=== PATIENT | female | born 1945 | race Caucasian/White ===

== ENCOUNTER → 2016-08-17 | Outpatient (CLI) | payer MEDICARE, OTHER ==
[~2016-08-17] MED LIST: ACET500C OR; ASPI81TA83 OR; ATEN25TA OR; CALCTAB22 PO; LEVOXYL25 MCG OR; NAPR250T OR; NIAS500T2 PO; QUININE PO; TRAM50TA2 PO; VESICARE PO; VITAMIN B6 PO; WELCHOL PO; ZOCO40TA PO
[2016-08-17 13:28] LABS: MEAN CORPUSCULAR HEMOGLOBIN 31.8 pg (27.0-33.0); MEAN CORPUSCULAR HGB CONC 33.4 g/dl (32.0-36.5); MEAN CORPUSCULAR VOLUME 95.1 fl (80.0-96.0); RED CELL DISTRIBUTION WIDTH 12.5 % (11.5-14.5); WHITE BLOOD COUNT 6.6 K/mm3 (4.0-10.0)
[2016-08-17 13:56] LABS: ALBUMIN 4.3 GM/DL (3.2-5.2); ALBUMIN/GLOBULIN RATIO 1.48 (1.00-1.93); ALKALINE PHOSPHATASE 78 U/L (45-117); ALT/SGPT 50 U/L (12-78); ANION GAP 9 MEQ/L (8-16); AST/SGOT 28 U/L (15-37); BILIRUBIN,TOTAL 0.4 MG/DL (0.2-1.0); BLOOD UREA NITROGEN 16 MG/DL (7-18); CALCIUM LEVEL 9.5 MG/DL (8.8-10.2); CARBON DIOXIDE LEVEL 30 MEQ/L (21-32); CHLORIDE LEVEL 106 MEQ/L (98-107); CHOLESTEROL LEVEL 196 MG/DL (<200); CREATININE FOR GFR 0.91 MG/DL (0.55-1.02); GLOMERULAR FILTRATION RATE > 60.0 (>39); GLUCOSE, FASTING 96 MG/DL (83-110); POTASSIUM SERUM 4.5 MEQ/L (3.5-5.1); SODIUM LEVEL 145 MEQ/L (136-145); TOTAL PROTEIN 7.2 GM/DL (6.4-8.2); TRIGLYCERIDES LEVEL 255 MG/DL (<150)
== END ==
LOC: M SMT 08:20
PROVIDERS: ATTEND Nurse Practitioner Family
DX: E03.8 Other specified hypothyroidism (principal); E78.4 Other hyperlipidemia; I10 Essential (primary) hypertension

== ENCOUNTER → 2016-10-07 | Outpatient (CLI) | payer MEDICARE, OTHER | LOC: M SMT 08:31 | PROVIDERS: ATTEND Nurse Practitioner Family | DX: E03.8 Other specified hypothyroidism (principal) ==

== ENCOUNTER → 2017-07-03 | Outpatient (CLI) | payer MEDICARE, OTHER ==
[2017-07-03 14:15] LABS: MEAN CORPUSCULAR HEMOGLOBIN 31.2 pg (27.0-33.0); MEAN CORPUSCULAR HGB CONC 31.8 g/dl (32.0-36.5); PLATELET COUNT, AUTOMATED 229 10^3/uL (150-450); RED CELL DISTRIBUTION WIDTH 13.2 % (11.5-14.5); WHITE BLOOD COUNT 5.5 10^3/uL (4.0-10.0)
[2017-07-03 14:50] LABS: ALBUMIN 4.2 GM/DL (3.2-5.2); ALBUMIN/GLOBULIN RATIO 1.45 (1.00-1.93); ALKALINE PHOSPHATASE 70 U/L (45-117); ALT/SGPT 31 U/L (12-78); ANION GAP 6 MEQ/L (8-16); AST/SGOT 22 U/L (7-37); BILIRUBIN,TOTAL 0.3 MG/DL (0.2-1.0); BLOOD UREA NITROGEN 12 MG/DL (7-18); CALCIUM LEVEL 8.6 MG/DL (8.8-10.2); CARBON DIOXIDE LEVEL 28 MEQ/L (21-32); CHLORIDE LEVEL 109 MEQ/L (98-107); CHOLESTEROL LEVEL 172 MG/DL (<200); CREATININE FOR GFR 0.79 MG/DL (0.55-1.02); GLOMERULAR FILTRATION RATE > 60.0 (>39); GLUCOSE, FASTING 98 MG/DL (83-110); POTASSIUM SERUM 4.5 MEQ/L (3.5-5.1); SODIUM LEVEL 143 MEQ/L (136-145); TOTAL PROTEIN 7.1 GM/DL (6.4-8.2); TRIGLYCERIDES LEVEL 161 MG/DL (<150)
== END ==
LOC: M SMT 08:13
PROVIDERS: ATTEND Nurse Practitioner Family
DX: E03.8 Other specified hypothyroidism (principal); E78.2 Mixed hyperlipidemia; I10 Essential (primary) hypertension

== ENCOUNTER → 2018-01-17 | Outpatient (CLI) | payer MEDICARE, OTHER ==
[2018-01-17 14:06] LABS: HEMATOCRIT 43.3 % (36.0-47.0); HEMOGLOBIN 13.7 g/dl (12.0-15.5); MEAN CORPUSCULAR HEMOGLOBIN 31.5 pg (27.0-33.0); MEAN CORPUSCULAR HGB CONC 31.6 g/dl (32.0-36.5); MEAN CORPUSCULAR VOLUME 99.5 fl (80.0-96.0); PLATELET COUNT, AUTOMATED 214 10^3/uL (150-450); RED BLOOD COUNT 4.35 10^6/uL (4.00-5.40); RED CELL DISTRIBUTION WIDTH 13.4 % (11.5-14.5); WHITE BLOOD COUNT 5.9 10^3/uL (4.0-10.0)
[2018-01-17 14:42] LABS: ALBUMIN 4.2 GM/DL (3.2-5.2); ALBUMIN/GLOBULIN RATIO 1.35 (1.00-1.93); ALKALINE PHOSPHATASE 68 U/L (45-117); ALT/SGPT 47 U/L (12-78); ANION GAP 9 MEQ/L (8-16); AST/SGOT 32 U/L (7-37); BILIRUBIN,TOTAL 0.4 MG/DL (0.2-1.0); BLOOD UREA NITROGEN 14 MG/DL (7-18); CALCIUM LEVEL 9.1 MG/DL (8.8-10.2); CARBON DIOXIDE LEVEL 30 MEQ/L (21-32); CHLORIDE LEVEL 106 MEQ/L (98-107); CHOLESTEROL LEVEL 208 MG/DL (<200); CHOLESTEROL RISK RATIO 5.073 (<5); CREATININE FOR GFR 1.01 MG/DL (0.55-1.30); GLOMERULAR FILTRATION RATE 57.2 (>39); GLUCOSE, FASTING 92 MG/DL (70-100); HDL CHOLESTEROL 41 MG/DL (>40); MAGNESIUM LEVEL 2.3 MG/DL (1.8-2.4); NON-HDL-C 167 MG/DL; POTASSIUM SERUM 4.8 MEQ/L (3.5-5.1); SODIUM LEVEL 145 MEQ/L (136-145); TOTAL PROTEIN 7.3 GM/DL (6.4-8.2); TRIGLYCERIDES LEVEL 230 MG/DL (<150)
== END ==
LOC: M SMT 08:26
DX: E78.2 Mixed hyperlipidemia (principal)
CPT/HCPCS: 83735

== ENCOUNTER → 2018-08-14 | Outpatient (CLI) | payer MEDICARE, OTHER ==
[2018-08-14 13:58] LABS: HEMATOCRIT 46.4 % (36.0-47.0); HEMOGLOBIN 14.6 g/dl (12.0-15.5); MEAN CORPUSCULAR HEMOGLOBIN 31.3 pg (27.0-33.0); MEAN CORPUSCULAR HGB CONC 31.5 g/dl (32.0-36.5); MEAN CORPUSCULAR VOLUME 99.4 fl (80.0-96.0); PLATELET COUNT, AUTOMATED 233 10^3/uL (150-450); RED BLOOD COUNT 4.67 10^6/uL (4.00-5.40)
[2018-08-14 14:29] LABS: ALBUMIN 4.3 GM/DL (3.2-5.2); ALT/SGPT 40 U/L (12-78); BILIRUBIN,TOTAL 0.4 MG/DL (0.2-1.0); BLOOD UREA NITROGEN 13 MG/DL (7-18); CALCIUM LEVEL 9.3 MG/DL (8.8-10.2); CARBON DIOXIDE LEVEL 29 MEQ/L (21-32); CHLORIDE LEVEL 106 MEQ/L (98-107); CHOLESTEROL LEVEL 192 MG/DL (<200); CHOLESTEROL RISK RATIO 3.047 (<5); CREATININE FOR GFR 0.87 MG/DL (0.55-1.30); GLOMERULAR FILTRATION RATE > 60.0 (>39); GLUCOSE, FASTING 91 MG/DL (70-100); HDL CHOLESTEROL 63 MG/DL (>40); LDL CHOLESTEROL 99 MG/DL (<100); NON-HDL-C 129 MG/DL; POTASSIUM SERUM 4.5 MEQ/L (3.5-5.1); SODIUM LEVEL 140 MEQ/L (136-145); TOTAL PROTEIN 7.2 GM/DL (6.4-8.2); TRIGLYCERIDES LEVEL 149 MG/DL (<150)
== END ==
LOC: M SMT 08:59
PROVIDERS: ATTEND Nurse Practitioner Family
DX: I10 Essential (primary) hypertension (principal); E78.5 Hyperlipidemia, unspecified

== ENCOUNTER → 2018-10-08 | Outpatient (REF) | payer MEDICARE, OTHER ==
[2018-10-08 13:20] LABS: BASO # 0.1 10^3/uL (0.0-0.2); BASO % 0.8 % (0.0-1.0); EOS # 0.1 10^3/uL (0.0-0.50); EOS % 1.7 % (0.0-3.0); HEMATOCRIT 41.3 % (36.0-47.0); HEMOGLOBIN 13.4 g/dl (12.0-15.5); LYMPH # 1.5 10^3/uL (1.5-4.5); LYMPH % 23.9 % (24.0-44.0); MEAN CORPUSCULAR HEMOGLOBIN 31.5 pg (27.0-33.0); MEAN CORPUSCULAR HGB CONC 32.4 g/dl (32.0-36.5); MEAN CORPUSCULAR VOLUME 96.9 fl (80.0-96.0); MONO # 0.7 10^3/uL (0.0-0.8); MONO % 11.6 % (0.0-5.0); NEUTROPHILS # 3.9 10^3/uL (1.8-7.7); NEUTROPHILS % 61.5 % (36.0-66.0); PLATELET COUNT, AUTOMATED 234 10^3/uL (150-450); RED BLOOD COUNT 4.26 10^6/uL (4.00-5.40); WHITE BLOOD COUNT 6.4 10^3/uL (4.0-10.0)
[2018-10-08 13:49] LABS: C REACTIVE PROTEIN QUANTITATIV < 0.30 MG/DL (0.00-0.30); ERYTHROCYTE SEDIMENTATION RATE 13 mm/hr (0-30); RHEUMATOID FACTOR QUANT < 10.0 IU/ML (<15.0); URIC ACID 4.1 MG/DL (2.6-6.0)
== END ==
LOC: M LABDRAW1 12:31
PROVIDERS: ATTEND Physician Assistant
DX: M17.11 Unilateral primary osteoarthritis, right knee (principal)

== ENCOUNTER → 2019-07-03 | Outpatient (CLI) | payer MEDICARE, OTHER ==
[2019-07-03 12:39] LABS: HEMATOCRIT 45.5 % (36.0-47.0); HEMOGLOBIN 14.3 g/dl (12.0-15.5); MEAN CORPUSCULAR HEMOGLOBIN 31.4 pg (27.0-33.0); MEAN CORPUSCULAR HGB CONC 31.4 g/dl (32.0-36.5); PLATELET COUNT, AUTOMATED 219 10^3/uL (150-450); RED BLOOD COUNT 4.55 10^6/uL (4.00-5.40); WHITE BLOOD COUNT 5.7 10^3/uL (4.0-10.0)
[2019-07-03 13:15] LABS: BLOOD UREA NITROGEN 11 MG/DL (7-18); CREATININE FOR GFR 0.91 MG/DL (0.55-1.30); GLUCOSE, FASTING 86 MG/DL (70-100)
[2019-07-03 13:16] LABS: ALBUMIN 4.3 GM/DL (3.2-5.2); ALT/SGPT 42 U/L (12-78); BILIRUBIN,TOTAL 0.4 MG/DL (0.2-1.0); CALCIUM LEVEL 9.1 MG/DL (8.8-10.2); CARBON DIOXIDE LEVEL 29 MEQ/L (21-32); CHLORIDE LEVEL 108 MEQ/L (98-107); CHOLESTEROL LEVEL 189 MG/DL (<200); CHOLESTEROL RISK RATIO 3.436 (<5); GLOMERULAR FILTRATION RATE > 60.0 (>39); HDL CHOLESTEROL 55 MG/DL (>40); LDL CHOLESTEROL 80 MG/DL (<100); NON-HDL-C 134 MG/DL; POTASSIUM SERUM 4.6 MEQ/L (3.5-5.1); SODIUM LEVEL 143 MEQ/L (136-145); TOTAL PROTEIN 7.1 GM/DL (6.4-8.2); TRIGLYCERIDES LEVEL 272 MG/DL (<150)
== END ==
LOC: M PLALAB 08:21
PROVIDERS: ATTEND Nurse Practitioner Family
DX: E03.9 Hypothyroidism, unspecified (principal); I10 Essential (primary) hypertension

== ENCOUNTER → 2019-11-21 | Outpatient (CLI) | payer MEDICARE, OTHER ==
[2019-11-21 14:24] LABS: THYROID STIMULATING HORMONE 0.22 uIU/ML (0.358-3.740); THYROXINE (T4) 11.4 UG/DL (4.5-12.0)
== END ==
LOC: M PLALAB 11:25
PROVIDERS: ATTEND Family Medicine
DX: E03.8 Other specified hypothyroidism (principal)

== ENCOUNTER → 2020-01-21 | Outpatient (CLI) | payer MEDICARE, OTHER ==
[2020-01-21 14:22] LABS: TOTAL 25(OH) VITAMIN D 89.2 NG/ML (30.0-100.0)
[2020-01-21 14:45] LABS: CALCIUM LEVEL 9.2 MG/DL (8.8-10.2); FREE T3 2.6 PG/ML (2.2-4.0); FREE T4 1.29 NG/DL (0.76-1.46); MAGNESIUM LEVEL 2.3 MG/DL (1.8-2.4); THYROID STIMULATING HORMONE 0.266 uIU/ML (0.358-3.740)
== END ==
LOC: M PLALAB 10:36
PROVIDERS: ATTEND Family Medicine
DX: E03.8 Other specified hypothyroidism (principal); E55.9 Vitamin D deficiency, unspecified; E83.42 Hypomagnesemia

== ENCOUNTER → 2020-03-09 | Outpatient (REF) | payer MEDICARE, OTHER ==
[2020-04-23 11:42] LABS: FREE T3 2.3 PG/ML (2.2-4.0); FREE T4 1.09 NG/DL (0.76-1.46); THYROID STIMULATING HORMONE 0.847 uIU/ML (0.358-3.740)
== END ==
LOC: M PLALAB 11:10
PROVIDERS: ATTEND Family Medicine
DX: E03.8 Other specified hypothyroidism (principal); E55.9 Vitamin D deficiency, unspecified; Z79.899 Other long term (current) drug therapy

== ENCOUNTER → 2020-08-10 | Outpatient (CLI) | payer MEDICARE, OTHER ==
[2020-08-10 13:56] LABS: HEMATOCRIT 45.2 % (36.0-47.0); HEMOGLOBIN 13.8 g/dl (12.0-15.5); MEAN CORPUSCULAR HEMOGLOBIN 31.2 pg (27.0-33.0); MEAN CORPUSCULAR HGB CONC 30.5 g/dl (32.0-36.5); MEAN CORPUSCULAR VOLUME 102.3 fl (80.0-96.0); PLATELET COUNT, AUTOMATED 213 10^3/uL (150-450); RED BLOOD COUNT 4.42 10^6/uL (4.00-5.40); WHITE BLOOD COUNT 5.9 10^3/uL (4.0-10.0)
[2020-08-10 15:14] LABS: ALBUMIN 4.4 GM/DL (3.2-5.2); ALT/SGPT 34 U/L (12-78); BILIRUBIN,TOTAL 0.5 MG/DL (0.2-1.0); BLOOD UREA NITROGEN 16 MG/DL (7-18); CALCIUM LEVEL 9.4 MG/DL (8.8-10.2); CARBON DIOXIDE LEVEL 29 MEQ/L (21-32); CHLORIDE LEVEL 107 MEQ/L (98-107); CHOLESTEROL LEVEL 191 MG/DL (<200); CHOLESTEROL RISK RATIO 3.673 (<5); CPK CREATINE PHOSPHOKINASE 194 U/L (26-192); CREATININE FOR GFR 0.91 MG/DL (0.55-1.30); FREE T3 2.2 PG/ML (2.2-4.0); FREE T4 1.07 NG/DL (0.76-1.46); GLOMERULAR FILTRATION RATE > 60.0 (>39); GLUCOSE, FASTING 98 MG/DL (70-100); HDL CHOLESTEROL 52 MG/DL (>40); LDL CHOLESTEROL 105 MG/DL (<100); NON-HDL-C 139 MG/DL; POTASSIUM SERUM 4.5 MEQ/L (3.5-5.1); SODIUM LEVEL 141 MEQ/L (136-145); TOTAL 25(OH) VITAMIN D 47.5 NG/ML (30.0-100.0); TOTAL PROTEIN 7.4 GM/DL (6.4-8.2); TRIGLYCERIDES LEVEL 172 MG/DL (<150); URIC ACID 4.7 MG/DL (2.6-6.0)
== END ==
LOC: M PLALAB 10:45
PROVIDERS: ATTEND Family Medicine
DX: E78.2 Mixed hyperlipidemia (principal); E03.8 Other specified hypothyroidism; I10 Essential (primary) hypertension; E55.9 Vitamin D deficiency, unspecified; Z79.899 Other long term (current) drug therapy

== ENCOUNTER → 2020-09-18 | Outpatient (CLI) | payer MEDICARE, OTHER ==
[2020-09-18 11:00] LABS: ALBUMIN 3.9 GM/DL (3.2-5.2); BILIRUBIN,DIRECT 0.1 MG/DL (0.0-0.2); BILIRUBIN,TOTAL 0.5 MG/DL (0.2-1.0); CHOLESTEROL RISK RATIO 4.022 (<5); FREE T4 0.99 NG/DL (0.76-1.46); THYROID STIMULATING HORMONE 2.19 uIU/ML (0.358-3.740); TOTAL PROTEIN 7.1 GM/DL (6.4-8.2)
== END ==
LOC: M PLALAB 08:08
PROVIDERS: ATTEND Family Medicine
DX: E03.9 Hypothyroidism, unspecified (principal); E78.2 Mixed hyperlipidemia

== ENCOUNTER → 2020-10-06 | Outpatient (CLI) | payer MEDICARE, OTHER ==
--- NOTE | 2020-10-06 17:27 | REP ---
INDICATION: ACUTE BRONCHITIS, UNSPECIFIED COMPARISON: 03/11/2016 TECHNIQUE: PA and lateral. FINDINGS: The mediastinum and cardiac silhouette are normal. The lung taylor are clear and without acute consolidation, effusion, or pneumothorax. The skeletal structures are intact and normal. IMPRESSION: No acute cardiopulmonary process. <Electronically signed by Jad Zhang > 10/06/20 [id number]
== END ==
LOC: M RAD 17:03
PROVIDERS: ATTEND Family Medicine
DX: J20.9 Acute bronchitis, unspecified (principal)

== ENCOUNTER → 2020-11-02 | Outpatient (CLI) | payer MEDICARE, OTHER ==
[2020-11-02 08:56] LABS: ALBUMIN 4.2 GM/DL (3.2-5.2); ALT/SGPT 30 U/L (12-78); BILIRUBIN,TOTAL 0.4 MG/DL (0.2-1.0); BLOOD UREA NITROGEN 11 MG/DL (7-18); CALCIUM LEVEL 9.1 MG/DL (8.8-10.2); CARBON DIOXIDE LEVEL 30 MEQ/L (21-32); CHLORIDE LEVEL 109 MEQ/L (98-107); CREATININE FOR GFR 0.75 MG/DL (0.55-1.30); GLOMERULAR FILTRATION RATE > 60.0 (>39); GLUCOSE, FASTING 104 MG/DL (70-100); POTASSIUM SERUM 3.9 MEQ/L (3.5-5.1); SODIUM LEVEL 142 MEQ/L (136-145); TOTAL PROTEIN 7.1 GM/DL (6.4-8.2)
== END ==
LOC: M LAB 07:53
PROVIDERS: ATTEND Family Medicine
DX: I10 Essential (primary) hypertension (principal); R05 Cough

== ENCOUNTER → 2020-11-05 | Outpatient (CLI) | payer MEDICARE, OTHER ==
--- NOTE | 2020-11-05 08:42 | REP ---
INDICATION: H/O SMOKING W/ COUGH. COMPARISON: PA and lateral chest dated 10/06/2020. TECHNIQUE: The study is performed without IV contrast. The images are presented at lung windowing only. FINDINGS: There are no lung masses or nodules. There are no infiltrates or pleural effusions. IMPRESSION: Category 1 low-dose lung screening CT of the chest. Probability of malignancy is less than 1%. Depending on risk factors consider follow-up annual low-dose lung screening chest CT. <Electronically signed by Alexis Ramirez > 11/05/20 0838
== END ==
LOC: M RAD 07:46
PROVIDERS: ATTEND Family Medicine
DX: R05 Cough (principal); Z87.891 Personal history of nicotine dependence; Z12.2 Encounter for screening for malignant neoplasm of respiratory organs

== ENCOUNTER → 2021-02-17 | Outpatient (CLI) | payer MEDICARE, OTHER ==
--- NOTE | 2021-02-19 00:18 | ECWPNPC ---
PATIENT NAME: MEENA REAGAN : 1945 GENDER: FEMALE VISIT DATE: 02/17/2021 DISCHARGE DATE: 02/17/21 1047 VISIT LOCKED DATE TIME: PHYSICIAN: MARINA ANGELES RESOURCE: MARINA ANGELES REASON FOR APPOINTMENT 1. LOW BACK PAIN HISTORY OF PRESENT ILLNESS DEPRESSION SCREENING: PHQ-2 (2015 EDITION) LITTLE INTEREST OR PLEASURE IN DOING THINGS?NOT AT ALL FEELING DOWN, DEPRESSED, OR HOPELESS?NOT AT ALL TOTAL SCORE0 GENERAL: HPI WITH HER [id number] FEMALE IN FOR INITIAL PAIN CONSULT REGARDING LOW BACK PAIN WITH HER SYMPTOMS. PATIENT RATES HER PAIN AT A 7 OUT OF 10 AND DESCRIBES IT CONTINUOUS, THROBBING, AND A CONSTANT TOOTHACHE. PATIENT HAS HAD INJECTIONS IN THE PAST TO NO AVAIL SHE FURTHER STATES THAT SHE DOES NOT WANT TO TRY LYRICA SHE WAS TOLD IT HAS A LOT OF POTENTIAL SIDE EFFECTS.. - -. FALL RISK SCREENING: SCREENING TWO FALLS REPORTED IN THE LAST YEAR WITH INJURY. PATIENT DENIES SEEKING MEDICAL TREATMENT.. PAIN SCREENING: PATIENT HAS A COMPLAINT OF ACUTE OR CHRONIC PAIN :YES LOCATION OF PAIN:LOW BACK INTENSITY OF PAIN (SCALE OF 1 TO 10):7 WHAT DOES YOUR PAIN FEEL LIKE:CONTINOUS, THROBBING, OTHER PATIENT STATES IT "FEELS LIKE A CONSTANT TOOTHACHE." DURATION:CONTINOUS, CONSTANT, ALL DAY, AWAKENS FROM SLEEP WALKING PAIN IS INCREASED BY:ACTIVITIES, PROLONGED STANDING PAIN IS DECREASED BY:SITTING PATIENT STATES SHE "HAS TRIED TRAMADOL IN THE PAST WITH NO EFFECT." NURSING NOTE: - -. PAIN CENTER INTAKE QUESTIONS: DO YOU HAVE A HISTORY OF MRSA? :NO DO YOU TAKE A BLOOD THINNERS? :NO ASPIRIN DO YOU HAVE ANY BLEEDING DISORDERS? :NO ANY NEW NUMBNESS OR WEAKNESS IN YOUR LEGS OR ARMS? :NO ANY PACEMAKER,DEFIBRILLATOR, OR DORSAL COLUMN STIMULATOR? :NO DO YOU HAVE ANY RASHES OR OPEN SORES? :NO ARE YOU ALLERGIC TO IV DYE? :NO ARE YOU DIABETIC? :NO ANY NEW PROBLEMS WITH YOUR MEDICATIONS? :NO HAVE YOU RECEIVED A VACCINE IN THE PAST 30 DAYS? :NO DO YOU PLAN TO RECEIVE A VACCINE IN THE NEXT 21 DAYS? :NO DO YOU NEED ANY PRESCRIPTION? :NO DO YOU TAKE ANY IMMUNOSUPPRESSIVE MEDICATIONS? :NO IS THERE A CHANCE YOU COULD BE ? :NO ARE YOU BREAST FEEDING? :NO CURRENT MEDICATIONS TAKING BREO ELLIPTA 200-25 MCG/INH AEROSOL POWDER BREATH ACTIVATED 1 PUFF INHALATION ONCE A DAY TAKING GABAPENTIN 600 MG TABLET 1 TABLET ORALLY ONCE A DAY TAKING LEVOTHYROXINE SODIUM 112 MCG TABLET 1 TABLET IN THE MORNING ON AN EMPTY STOMACH ORALLY ONCE A DAY TAKING LOSARTAN POTASSIUM 50 MG TABLET 1 TABLET ORALLY ONCE A DAY TAKING FLUTICASONE PROPIONATE 50 MCG/ACT SUSPENSION 1 SPRAY IN EACH NOSTRIL NASALLY ONCE A DAY TAKING PROAIR HFA 108 (90 BASE) MCG/ACT AEROSOL SOLUTION 2 PUFFS NEEDED INHALATION QID PRN TAKING DRISDOL 1.25 MG (27621 UT) CAPSULE 1 CAPSULE ORALLY MONTHLY TAKING ATENOLOL 25 MG TABLET 1 TABLET ORALLY ONCE A DAY TAKING ZOCOR 20 MG TABLET 1 TABLET IN THE EVENING ORALLY ONCE A DAY TAKING FISH OIL 1000 MG CAPSULE 1 CAPSULE ORALLY ONCE A DAY TAKING CALCIUM 1200 8906-1752 MG-UNIT TABLET CHEWABLE 1 TABLET ORALLY ONCE A DAY TAKING ASPIRIN 81 MG TABLET CHEWABLE 1 TABLET ORALLY ONCE A DAY TAKING LION ALLERGY 180 MG TABLET 1 TABLET ORALLY ONCE A DAY NOT-TAKING DULOXETINE HCL 60 MG CAPSULE DELAYED RELEASE PARTICLES 1 CAPSULE ORALLY ONCE A DAY NOT-TAKING LORATADINE 10 MG TABLET 1 TABLET ORALLY ONCE A DAY MEDICATION LIST REVIEWED AND RECONCILED WITH THE PATIENT PAST MEDICAL HISTORY HYPOTHYROIDISM HYPERLIPIDEMIA DISTURBANCE OF SMELL- ANOSMIA SCIATICA ATHROPATHY URGE AND STRESS INCONTINNCE VERICOSE VEINS LOWER LEGS HTN ALLERGIES HAYFEVER: CONGESTED - ALLERGY SURGICAL HISTORY TONSILLECTOMY THYROIDECTOMY-RIGHT SIDE GOITER REMOVED CHOLECTECTOMY FAMILY HISTORY FATHER: MOTHER: 1 BROTHER(S) , 1 SISTER(S) - HEALTHY. 1 BROTHER AND 1 SISTER . SOCIAL HISTORY GENERAL: TOBACCO USE ARE YOU A:FORMER SMOKER HOW LONG HAS IT BEEN SINCE YOU LAST SMOKED?> 10 YEARS LATEX QUESTIONNAIRE LATEX ALLERGY : HAVE YOU EVER DEVELOPED ANY TYPE OF REACTION AFTER HANDLING LATEX PRODUCTS SUCH RUBBER GLOVES, CONDOMS, DIAPHRAGMS, BALLOONS, SOCKS, OR UNDERWEAR?NO LATEX ALLERGY : HAVE YOU EVER DEVELOPED ANY TYPE OF REACTION DURING OR AFTER DENTAL APPOINTMENT, VAGINAL/RECTAL EXAMINATION, SURGICAL PROCEDURE, OR ANY OTHER EXPOSURE?NO LATEX RISK : HAVE YOU EVER HAD ANY DIFFICULTY BREATHING OR HIVES AFTER EATING OR HANDLING ANY FRUITS, OR VEGETABLES; SUCH KIWI, BANANAS, STONE FRUITS, OR CHESTNUTSNO LATEX RISK : DO YOU HAVE A PREVIOUS PERSONAL HISTORY OF MORE THAN NINE SURGERIES, SPINA BIFIDA, OR REPEATED CATHERIZATIONS? NO LATEX RISK : ARE YOU FREQUENTLY EXPOSED TO LATEX PRODUCTS IN YOUR OCCUPATION?NO DATE ASKED : 02/17/2021 ALCOHOL USE: OCCASIONAL. RECREATIONAL DRUG USE DRUG USE?NO LANGUAGE LANGUAGES SPOKEN:TAJIK LEARNING BARRIERS / SPECIAL NEEDS BARRIERS TO LEARNING?NO HEARING IMPAIRED?NO VISION IMPAIRED?YES :CORRECTIVE LENSES COGNITIVELY IMPAIRED?NO READINESS TO LEARN?YES LEARNING PREFERENCES?NO LEARNING CAPABILITIES PRESENT?YES EMOTIONAL BARRIERS?NO SPECIAL DEVICES?NO WOOD ROOM SUPERVISOR NEEDED?NO HOSPITALIZATION/MAJOR DIAGNOSTIC PROCEDURE SURGERY RELATED REVIEW OF SYSTEMS CONSTITUTIONAL: ANY RECENT FEVER NO . CHILLS NO . WEIGHT CHANGE OF UNKNOWN REASONS NO . GASTROENTEROLOGY: NEW UNEXPLAINABLE CHANGES IN BOWEL CONTROL NO . CONSTIPATION NO . GENITOURINARY: ANY NEW CHANGE IN BLADDER CONTROL? NO . NEUROLOGY: NEW ONSET DIZZINESS OR NEUROLOGICAL CHANGES NOT MENTIONED NO . NEW NUMBNESS OR PAIN PATTERNS NOT MENTIONED AND PERTINENT TO TODAY'S VISIT NO . CARDIOLOGY: NEW CHEST PRESSURE NO . PATIENT DENIES NO . RESPIRATORY: UNEXPLAINABLE COUGH NO . NEW SHORTNESS OF BREATH NO . VITAL SIGNS WT 165.2 LBS, HT 52 IN, BMI 42.95 INDEX, BP 138/74 MM HG, HR 66 /MIN, RR 18 /MIN, TEMP 98.0 F, OXYGEN SAT % 99%, SAFE IN ENV? (Y/N) YES, NA INITIALS AW 0953, REVIEWED BY: DICK MARQUEZ MA. EXAMINATION GENERAL EXAMINATION: GENERALNO ACUTE DISTRESS, WELL NOURISHED AND HYDRATED. PSYCHAPPROPRIATE MOOD AND AFFECT . LUNGS:CLEAR TO AUSCULTATION BILATERALLY, NO WHEEZES, RHONCHI, RALES. HEART:NO MURMURS, REGULAR RATE AND RHYTHM. BACK:DENIES POINT TENDERNESS ALONG LUMBAR SPINE, POSITIVE MODIFIED SLR LEFT SIDE. MUSCULOSKELETAL:EQUAL STRENGTH OF THE LOWER EXTREMITIES BILATERALLY. ASSESSMENTS DORSALGIA OF LUMBOSACRAL REGION - M54.5 (PRIMARY) TREATMENT DORSALGIA OF LUMBOSACRAL REGION START CELEBREX CAPSULE, 100 MG, 1 CAPSULE WITH FOOD, ORALLY, ONCE A DAY, 30 DAY(S), 30 CAPSULE, REFILLS [facility], [facility] WITHOUT [id number] NOTES: 75-YEAR-OLD FEMALE IN FOR INITIAL PAIN CONSULT REGARDING LOW BACK PAIN. GIVEN PRESENTING SYMPTOMS AND RESULTS OF PHYSICAL EXAMINATION RECOMMEND GETTING AN UPDATED MRI AND STARTING CELEBREX WITH FOLLOW-UP POST IMAGING. PATIENT HAS EXPRESSED UNDERSTANDING OF AND WAS IN AGREEMENT WITH TREATMENT PLAN. GIVEN TIME TO ASK QUESTIONS AND EXPRESS CONCERNS. CLINICAL NOTES: CELEBREX INFORMATION PRINTED AND PROVIDED TO PATIENT. PATIENT VERBALIZED AN UNDERSTANDING. JENA MARQUEZ MA. PROCEDURE CODES FA211 ESTABILISHED PATIENT [facility] CHARGE DISPOSITION & COMMUNICATION FOLLOW UP POST IMAGING (REASON: MRI LUMBAR SPINE WITHOUT CONTRAST) ELECTRONICALLY SIGNED BY RANDALL VASQUEZ ON 02/18/2021 AT 08:38 AM EDT DISCLAIMER : THIS IS A VISIT SUMMARY EXTRACTED FROM THE [employer] CHART. IT IS NOT A COPY OF THE [employer] PROGRESS NOTE. LAVINIAD
== END ==
LOC: M PAIN 09:45
PROVIDERS: ATTEND Family Medicine
DX: M54.5 Low back pain (principal); E03.9 Hypothyroidism, unspecified; Z87.891 Personal history of nicotine dependence; E66.01 Morbid (severe) obesity due to excess calories; Z68.41 Body mass index [BMI] 40.0-44.9, adult; Z79.51 Long term (current) use of inhaled steroids; Z79.82 Long term (current) use of aspirin; Z79.899 Other long term (current) drug therapy

== ENCOUNTER → 2021-02-27 | Outpatient (CLI) | payer MEDICARE, OTHER ==
--- NOTE | 2021-02-27 14:16 | REPVR ---
PROCEDURE INFORMATION: Exam: MR Lumbar Spine Without Contrast Exam date and time: 02/27/2021 10:27 AM Age: 75 years old Clinical indication: Dorslagia and low back pain; Additional info: Dorsalgia lumbosacral region TECHNIQUE: Imaging protocol: Multiplanar magnetic resonance images of the lumbar spine without intravenous contrast. COMPARISON: No relevant prior studies available. FINDINGS: Vertebrae: Mild levoscoliosis in the lumbar spine. No acute compression fracture. There is a probable transitional vertebral segment. The last mobile appearing disc space may be rudimentary and is labeled as S1-S2. Grade 1 anterior spondylolisthesis of L4 on L5. There is a large hemangioma in the L1 vertebral body and a smaller hemangioma in the L2 vertebral body. Diffuse degenerative facet arthropathy and ligamentum flavum hypertrophy. There appears to be a congenitally narrow lumbar spinal canal with further narrowing due to degeneration. Spinal cord: The conus is normal appearance at the L2 level. L1-L2: No significant spinal canal stenosis or neural foraminal narrowing. L2-L3: Moderate to severe spinal canal stenosis due to combination of congenitally narrow spinal canal, degenerative facet arthropathy and diffusely bulging annulus with compression of the thecal sac and narrowing of both lateral recesses which may affect the exiting L3 nerve roots. There is also narrowing of the left neural foramen with posterior displacement of the left L2 nerve root in the far lateral position. L3-L4: Moderate to severe spinal canal stenosis with findings as at the above level. The lateral recess narrowing may affect both exiting L4 nerve roots. The neural foramina are mildly narrowed without obvious compression of the L3 nerve roots. L4-L5: Grade 1 anterior spondylolisthesis with resultant severe spinal canal stenosis. The spondylolisthesis appears to be due to degeneration and subluxation of facet joints. There is compression of both exiting L5 nerve roots as well as the thecal sac and narrowing of both neural foramen which may affect the L4 nerve roots. L5-S1: Moderate spinal canal stenosis without evidence of compression of the exiting S1 nerve roots and the neural foramen are not significantly narrowed. Soft tissues: Unremarkable. IMPRESSION: There is a probable transitional vertebral segment. There is a rudimentary disc at the S1-S2 level. Severe spinal canal stenosis due to anterior spondylolisthesis at the L4-L5 level likely affecting both L5 nerve roots and possibly the L4 nerve roots as well. Other levels of possible neural compromise as above. Electronically signed by: Lilian Pat On 02/27/2021 14:16:06 PM
== END ==
LOC: M RAD 08:48
PROVIDERS: ATTEND Family Medicine
DX: M54.89 Other dorsalgia (principal)

== ENCOUNTER → 2021-03-24 | Outpatient (CLI) | payer MEDICARE, OTHER ==
--- NOTE | 2021-03-28 23:43 | ECWPNPC ---
PATIENT NAME: ADAMA REAGAN : 1945 GENDER: FEMALE VISIT DATE: 03/24/2021 DISCHARGE DATE: 03/24/21 1148 VISIT LOCKED DATE TIME: PHYSICIAN: JAMIR BOYCE MD RESOURCE: JAMIR BOYCE MD REASON FOR APPOINTMENT 1. REVIEW MRI HISTORY OF PRESENT ILLNESS GENERAL: 75 YEAR-OLD FEMALE PATIENT WITH A HISTORY OF CHRONIC LOW BACK AND MAINLY RIGHT LEG PAIN. THE PATIENT DESCRIBES THE PAIN ACHING AND SEVERE WITH A PAIN SCORE RANGING FROM 7-10/10. SHE IS HAVING PROBLEMS WALKING. THIS IS AFFECTING HER ABILITY TO PERFORM ACTIVITIES SUCH CLEANING HER HOUSE. SHE IS LOOKING FOR HELP. FALL RISK SCREENING: SCREENING : NO FALLS REPORTED IN THE LAST YEAR. PAIN SCREENING: PATIENT HAS A COMPLAINT OF ACUTE OR CHRONIC PAIN :YES LOCATION OF PAIN:LOW BACK INTENSITY OF PAIN (SCALE OF 1 TO 10):5 WHAT DOES YOUR PAIN FEEL LIKE:SHOOTING, OTHER TIGHTNESS DURATION:CONTINOUS, CONSTANT, ALL DAY PAIN IS INCREASED BY:ACTIVITIES PAIN IS DECREASED BY:OTHERS RESTING NURSING NOTE: - PATIENT STATED SHE FEELS LIKE THE CELEBREX 100MG ONCE A DAY IS NOT WORKING FOR HER, SHE JUST STARTED TAKING DULOXETINE A COUPLE A DAYS WHICH HE SAID WOULD HELP HER, BUT SHE IS NOT A 100% SURE IF IT HELPING OR NOT. PAIN CENTER INTAKE QUESTIONS: DO YOU HAVE A HISTORY OF MRSA? :NO DO YOU TAKE A BLOOD THINNERS? :NO ASPIRIN DO YOU HAVE ANY BLEEDING DISORDERS? :NO ANY NEW NUMBNESS OR WEAKNESS IN YOUR LEGS OR ARMS? :YES PAIN GOES DOWN INTO BOTH LEG MOSTLY ON THE RIGHT ANY PACEMAKER,DEFIBRILLATOR, OR DORSAL COLUMN STIMULATOR? :NO DO YOU HAVE ANY RASHES OR OPEN SORES? :NO ARE YOU ALLERGIC TO IV DYE? :NO ARE YOU DIABETIC? :NO ANY NEW PROBLEMS WITH YOUR MEDICATIONS? :YES CELEBREX IS NOT WORKING FOR HER HAVE YOU RECEIVED A VACCINE IN THE PAST 30 DAYS? :NO DO YOU PLAN TO RECEIVE A VACCINE IN THE NEXT 21 DAYS? :NO DO YOU NEED ANY PRESCRIPTION? :NO DO YOU TAKE ANY IMMUNOSUPPRESSIVE MEDICATIONS? :NO IS THERE A CHANCE YOU COULD BE ? :NO ARE YOU BREAST FEEDING? :NO CURRENT MEDICATIONS TAKING BREO ELLIPTA 200-25 MCG/INH AEROSOL POWDER BREATH ACTIVATED 1 PUFF INHALATION ONCE A DAY TAKING GABAPENTIN 600 MG TABLET 1 TABLET ORALLY ONCE A DAY TAKING LEVOTHYROXINE SODIUM 112 MCG TABLET 1 TABLET IN THE MORNING ON AN EMPTY STOMACH ORALLY ONCE A DAY TAKING LOSARTAN POTASSIUM 50 MG TABLET 1 TABLET ORALLY ONCE A DAY TAKING FLUTICASONE PROPIONATE 50 MCG/ACT SUSPENSION 1 SPRAY IN EACH NOSTRIL NASALLY ONCE A DAY TAKING PROAIR HFA 108 (90 BASE) MCG/ACT AEROSOL SOLUTION 2 PUFFS NEEDED INHALATION QID PRN TAKING DRISDOL 1.25 MG (78524 UT) CAPSULE 1 CAPSULE ORALLY MONTHLY TAKING ATENOLOL 25 MG TABLET 1 TABLET ORALLY ONCE A DAY TAKING ZOCOR 20 MG TABLET 1 TABLET IN THE EVENING ORALLY ONCE A DAY TAKING FISH OIL 1000 MG CAPSULE 1 CAPSULE ORALLY ONCE A DAY TAKING CALCIUM 1200 7037-8091 MG-UNIT TABLET CHEWABLE 1 TABLET ORALLY ONCE A DAY TAKING ASPIRIN 81 MG TABLET CHEWABLE 1 TABLET ORALLY ONCE A DAY TAKING LION ALLERGY 180 MG TABLET 1 TABLET ORALLY ONCE A DAY TAKING CELEBREX 100 MG CAPSULE 1 CAPSULE WITH FOOD ORALLY ONCE A DAY TAKING DULOXETINE HCL 60 MG CAPSULE DELAYED RELEASE PARTICLES 1 CAPSULE ORALLY TWICE A DAY NOT-TAKING LORATADINE 10 MG TABLET 1 TABLET ORALLY ONCE A DAY MEDICATION LIST REVIEWED AND RECONCILED WITH THE PATIENT PAST MEDICAL HISTORY HYPOTHYROIDISM HYPERLIPIDEMIA DISTURBANCE OF SMELL- ANOSMIA SCIATICA ATHROPATHY URGE AND STRESS INCONTINNCE VERICOSE VEINS LOWER LEGS HTN ALLERGIES HAYFEVER: CONGESTED - ALLERGY SOCIAL HISTORY GENERAL: TOBACCO USE ARE YOU A:FORMER SMOKER HOW LONG HAS IT BEEN SINCE YOU LAST SMOKED?> 10 YEARS LATEX QUESTIONNAIRE LATEX ALLERGY : HAVE YOU EVER DEVELOPED ANY TYPE OF REACTION AFTER HANDLING LATEX PRODUCTS SUCH RUBBER GLOVES, CONDOMS, DIAPHRAGMS, BALLOONS, SOCKS, OR UNDERWEAR?NO LATEX ALLERGY : HAVE YOU EVER DEVELOPED ANY TYPE OF REACTION DURING OR AFTER DENTAL APPOINTMENT, VAGINAL/RECTAL EXAMINATION, SURGICAL PROCEDURE, OR ANY OTHER EXPOSURE?NO LATEX RISK : HAVE YOU EVER HAD ANY DIFFICULTY BREATHING OR HIVES AFTER EATING OR HANDLING ANY FRUITS, OR VEGETABLES; SUCH KIWI, BANANAS, STONE FRUITS, OR CHESTNUTSNO LATEX RISK : DO YOU HAVE A PREVIOUS PERSONAL HISTORY OF MORE THAN NINE SURGERIES, SPINA BIFIDA, OR REPEATED CATHERIZATIONS? NO LATEX RISK : ARE YOU FREQUENTLY EXPOSED TO LATEX PRODUCTS IN YOUR OCCUPATION?NO DATE ASKED : 03/24/2021 ALCOHOL USE: OCCASIONAL. RECREATIONAL DRUG USE DRUG USE?NO LANGUAGE LANGUAGES SPOKEN:ICELANDIC LEARNING BARRIERS / SPECIAL NEEDS BARRIERS TO LEARNING?NO HEARING IMPAIRED?NO VISION IMPAIRED?YES :CORRECTIVE LENSES COGNITIVELY IMPAIRED?NO READINESS TO LEARN?YES LEARNING PREFERENCES?NO LEARNING CAPABILITIES PRESENT?YES EMOTIONAL BARRIERS?NO SPECIAL DEVICES?NO BACTERIOLOGY PROFESSOR NEEDED?NO REVIEW OF SYSTEMS CONSTITUTIONAL: ANY RECENT FEVER NO . CHILLS NO . WEIGHT CHANGE OF UNKNOWN REASONS NO . GASTROENTEROLOGY: NEW UNEXPLAINABLE CHANGES IN BOWEL CONTROL NO . CONSTIPATION NO . GENITOURINARY: ANY NEW CHANGE IN BLADDER CONTROL? NO . NEUROLOGY: NEW ONSET DIZZINESS OR NEUROLOGICAL CHANGES NOT MENTIONED NO . NEW NUMBNESS OR PAIN PATTERNS NOT MENTIONED AND PERTINENT TO TODAY'S VISIT NO . CARDIOLOGY: NEW CHEST PRESSURE NO . PATIENT DENIES NO . RESPIRATORY: UNEXPLAINABLE COUGH NO . NEW SHORTNESS OF BREATH NO . VITAL SIGNS WT 165.0 LBS, WT-KG 74.84 KG, HT 52 IN, BMI 42.90 INDEX, BP 140/67 MM HG, HR 63 /MIN, RR 18 /MIN, TEMP 98.0 F, OXYGEN SAT % 100%, SAFE IN ENV? (Y/N) YES, NA INITIALS AW 1036T.DUSTIN COLE. EXAMINATION GENERAL EXAMINATION: THE PATIENT IS ALERT, ORIENTED TIMES THREE AND COOPERATIVE. HER WALK IS ANTALGIC. SHE IS LIMPING MAINLY FROM THE RIGHT LEG, THAT IS WEAKER THAN THE LEFT LEG. STRAIGHT LEG RAISING OVER THE RIGHT LEG IS POSITIVE FOR RADICULOPATHY AT 30%. MRI OF THE LUMBOSACRAL SPINE 02/27/2021 IS SHOWING SEVERE SPINAL STENOSIS OF L4 AND L5, SOME SPONDYLOLISTHESIS OF L4, SEVERE SPONDYLOLISTHESIS AT L5 S1. 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 REAGAN. I WILL REQUEST AUTHORIZATION FOR AN EPIDURAL OF L4-L5 AND BOOK HER AFTER APPROVAL. I WILL ALSO REFER HER OPINION OF THE SPINE SURGEON. I HAD A LONG CONVERSATION WITH THE PATIENT ABOUT HE CASE . I WILL INCREASE CELEBREX 100 MG TWICE A DAY. PATIENT AGREES WITH THE PLAN. I, AGUSTINA BARBOUR RN DOCUMENTED THE ABOVE INFORMATION ACTING A SCRIBE FOR DR BOYCE. I HAVE REVIEWED THE ABOVE DOCUMENT, WRITTEN BY AGUSTINA BARBOUR RN, AND I VERIFY THAT IT IS ACCURATE. LUMBAR SPINAL STENOSIS REFERRAL TO:[facility] REASON:SURGICAL CONSULT VISIT CODES PROCEDURE CODES FA211 ESTABILISHED PATIENT [facility] CHARGE [id number] OFFICE/OUTPATIENT VISIT EST DISPOSITION & COMMUNICATION FOLLOW UP REQUEST AUTHORIZATION FOR LUMBAR EPIDURAL STEROID INJECTION AND BOOK PATIENT AFTER RECEIVED (REASON: POST PROCEDURE- LUMBAR EPIDURAL STEROID INJECTION ) ELECTRONICALLY SIGNED BY JAMIR BOYCE MD, MD ON 03/28/2021 AT 07:35 PM EDT DISCLAIMER : THIS IS A VISIT SUMMARY EXTRACTED FROM THE [employer] CHART. IT IS NOT A COPY OF THE [employer] PROGRESS NOTE. ROD
== END ==
LOC: M PAIN 10:45
PROVIDERS: ATTEND Anesthesiology
DX: M54.5 Low back pain (principal); M48.061 Spinal stenosis, lumbar region without neurogenic claudication; M51.16 Intervertebral disc disorders with radiculopathy, lumbar region; G89.29 Other chronic pain; E03.9 Hypothyroidism, unspecified; Z87.891 Personal history of nicotine dependence; E66.01 Morbid (severe) obesity due to excess calories; Z68.41 Body mass index [BMI] 40.0-44.9, adult; Z79.51 Long term (current) use of inhaled steroids; Z79.82 Long term (current) use of aspirin; Z79.899 Other long term (current) drug therapy

== ENCOUNTER → 2021-04-01 | Outpatient (CLI) | payer MEDICARE, OTHER ==
--- NOTE | 2021-04-01 11:53 | REP ---
INDICATION: SPINAL STENOSIS. COMPARISON: Comparison lumbar spine radiographs are from May 27, 2010. TECHNIQUE: Four views of the lumbar spine are provided. Standing AP and lateral views. FINDINGS: Lumbar vertebral body heights are preserved. There is degenerative disc narrowing at L3-4 and a grade 1 9 mm spondylolisthesis is present with L3 anterior with respect L4 due to degenerative disc and osteoarthritic facet disease. There is also degenerative disc narrowing at L4-5 and L5-S1. Discogenic spurring is seen at L2-3 and L1-2. The spondylolisthesis is new from the prior study degenerative disc changes are more pronounced compared to the 19/05 prior exam. There is osteoarthritic facet sclerosis and hypertrophy right greater than left at each level from L2-3 through L5-S1. Left-sided facet arthropathy is seen at L4-5 and L5-S1. The left L5 transverse process is somewhat sacralized. Psoas margins are symmetric. There is no evidence of spondylolysis. IMPRESSION: Degenerative spondylosis changes. There is a degenerative 9 mm grade 1 L3-4 spondylolisthesis. Osteoarthritic facet changes are noted as above. <Electronically signed by Iain Sanches > 04/01/21 [id number]
--- NOTE | 2021-04-01 11:59 | REP ---
INDICATION: SPINAL STENOSIS. COMPARISON: Comparison radiographs January 22, 2008. TECHNIQUE: AP view of the pelvis. Standing view. FINDINGS: Bony pelvic ring is intact. Symphysis pubis and SI joints are normally aligned. There is mild narrowing of the sacroiliac joints bilaterally. There is chondrocalcinosis and superior and inferior acetabular spurring of the hips bilaterally. Some femoral head spurring is seen inferiorly and medially. These findings are more pronounced than on the 2007 prior study. There also degenerative disc and facet changes in the lumbar spine. IMPRESSION: Bilateral hip joint osteoarthritis. <Electronically signed by Iain Sanches > 04/01/21 [id number]
== END ==
LOC: M SOG 10:08
PROVIDERS: ATTEND Orthopaedic Surgery
DX: M48.062 Spinal stenosis, lumbar region with neurogenic claudication (principal)

== ENCOUNTER → 2021-04-14 | Outpatient (CLI) | payer MEDICARE, OTHER | LOC: M LABSMTC 09:26 | PROVIDERS: ATTEND Anesthesiology | DX: Z01.812 Encounter for preprocedural laboratory examination (principal); Z20.822 Contact with and (suspected) exposure to COVID-19 ==

== ENCOUNTER → 2021-04-19 | Outpatient (CLI) | payer MEDICARE, OTHER ==
[~2021-04-19] MED LIST changes: +ISOVUE-M 300 61% 15ML VIAL As Ordered ONE; +LIDOCAINE 1% SDV 30ML VIAL As Ordered ONE; +methylPREDNISolone SUSP 40MG/ML 1ML VIAL (DEPO MEDROL) As Ordered ONE
--- NOTE | 2021-04-19 12:12 | REP ---
INDICATION: LUMBAR EPIDURAL STEROID INJECTION. COMPARISON: None. TECHNIQUE: Two C-arm views lower lumbar spine. FINDINGS: A needle is seen at the L4-5 level. IMPRESSION: 8 seconds fluoroscopy time utilized. <Electronically signed by Alexis Brothers > 04/19/21 [id number]
== END ==
LOC: M PAIN 11:00
PROVIDERS: ATTEND Anesthesiology
DX: M51.16 Intervertebral disc disorders with radiculopathy, lumbar region (principal); E03.9 Hypothyroidism, unspecified; E66.01 Morbid (severe) obesity due to excess calories; Z68.41 Body mass index [BMI] 40.0-44.9, adult; Z79.51 Long term (current) use of inhaled steroids; Z79.82 Long term (current) use of aspirin; Z79.899 Other long term (current) drug therapy
CPT/HCPCS: 62323; J1030; Q9967

== ENCOUNTER → 2021-05-07 | Outpatient (CLI) | payer MEDICARE, OTHER ==
[~2021-05-07] MED LIST changes: -ISOVUE-M 300 61% 15ML VIAL As Ordered ONE; -LIDOCAINE 1% SDV 30ML VIAL As Ordered ONE; -methylPREDNISolone SUSP 40MG/ML 1ML VIAL (DEPO MEDROL) As Ordered ONE
== END ==
LOC: M PAIN 11:45
PROVIDERS: ATTEND Anesthesiology
DX: M51.16 Intervertebral disc disorders with radiculopathy, lumbar region (principal); G89.29 Other chronic pain; E03.9 Hypothyroidism, unspecified; Z87.891 Personal history of nicotine dependence; E66.01 Morbid (severe) obesity due to excess calories; Z68.41 Body mass index [BMI] 40.0-44.9, adult; Z79.51 Long term (current) use of inhaled steroids; Z79.82 Long term (current) use of aspirin; Z79.899 Other long term (current) drug therapy

== ENCOUNTER → 2021-05-10 | Outpatient (CLI) | payer MEDICARE, OTHER ==
--- NOTE | 2021-05-10 09:56 | REP ---
INDICATION: OTHER CHRONIC PAIN COMPARISON: 04/01/2021 TECHNIQUE: AP, lateral, flexion/extension, bilateral oblique, and coned-down views. FINDINGS: Osteopenia and advanced multilevel degenerative changes are again noted and essentially stable. Findings include endplate sclerosis, osteophytosis, and significant diffuse hypertrophic facet changes. Chronic grade 1 anterolisthesis at the L3-4 level is unchanged. Disc space narrowing at L5-S1 unchanged. No evidence for acute fracture/compression injury or subluxation. IMPRESSION: Osteopenia and advanced multilevel degenerative changes remain relatively stable. <Electronically signed by Jad Zhang > 05/10/21 0909
== END ==
LOC: M RAD 09:13
PROVIDERS: ATTEND Anesthesiology
DX: G89.29 Other chronic pain (principal); M85.80 Other specified disorders of bone density and structure, unspecified site

== ENCOUNTER → 2021-09-01 | Outpatient (REF) | LOC: M LABSMTC 09:03 | PROVIDERS: ATTEND Pediatrics | DX: Z20.822 Contact with and (suspected) exposure to COVID-19 (principal) ==

== ENCOUNTER → 2021-11-15 | Outpatient (CLI) | payer MEDICARE, OTHER | LOC: M RAD 08:54 | PROVIDERS: ATTEND Family Medicine | DX: Z12.2 Encounter for screening for malignant neoplasm of respiratory organs (principal); F17.210 Nicotine dependence, cigarettes, uncomplicated ==

== ENCOUNTER → 2021-12-03 | Outpatient (CLI) | payer MEDICARE, OTHER | LOC: M WHC 09:26 | PROVIDERS: ATTEND Family Medicine | DX: Z12.31 Encounter for screening mammogram for malignant neoplasm of breast (principal); Z78.0 Asymptomatic menopausal state ==

== ENCOUNTER → 2022-05-27 | Outpatient (CLI) | payer MEDICARE, OTHER | LOC: M PLAIMG 11:15 | PROVIDERS: ATTEND Family Medicine | DX: J40 Bronchitis, not specified as acute or chronic (principal) ==

== ENCOUNTER → 2022-06-20 | Outpatient (CLI) | payer MEDICARE, OTHER | LOC: M PLAIMG 13:14 | PROVIDERS: ATTEND Family Medicine | DX: I71.9 Aortic aneurysm of unspecified site, without rupture (principal) ==

== ENCOUNTER → 2022-07-13 | Outpatient (CLI) | payer MEDICARE, OTHER ==
[2022-07-13 11:05] LABS: BLOOD UREA NITROGEN 18 MG/DL (9-23); CALCIUM LEVEL 9.7 MG/DL (8.3-10.6); CARBON DIOXIDE LEVEL 28 MMOL/L (20-31); CHLORIDE LEVEL 104 MMOL/L (98-107); CREATININE FOR GFR 0.89 MG/DL (0.55-1.30); GLOMERULAR FILTRATION RATE > 60.0 (>39); GLUCOSE, FASTING 87 MG/DL (74-106); PHOSPHORUS LEVEL 3.9 MG/DL (2.4-5.1); POTASSIUM SERUM 4.3 MMOL/L (3.5-5.1); SODIUM LEVEL 140 MMOL/L (136-145)
== END ==
LOC: M PLALAB 08:00
PROVIDERS: ATTEND Internal Medicine Cardiovascular Disease
DX: I11.9 Hypertensive heart disease without heart failure (principal); R60.0 Localized edema; R07.2 Precordial pain

== ENCOUNTER → 2022-08-08 | Outpatient (CLI) | payer MEDICARE, OTHER ==
[~2022-08-08] MED LIST changes: +ISOVUE-370 76% 100ML VIAL As Ordered ONE
== END ==
LOC: M RAD 14:06
PROVIDERS: ATTEND Otolaryngology
DX: J38.3 Other diseases of vocal cords (principal)
CPT/HCPCS: 70491; Q9967

== ENCOUNTER → 2022-10-25 | Outpatient (CLI) | payer MEDICARE, OTHER ==
[~2022-10-25] MED LIST changes: -ISOVUE-370 76% 100ML VIAL As Ordered ONE
== END ==
LOC: M CARPUL 09:39
PROVIDERS: ATTEND Internal Medicine Pulmonary Disease
DX: R06.02 Shortness of breath (principal)

== ENCOUNTER → 2022-12-30 | Day surgery (SDC) | payer MEDICARE, OTHER ==
[~2022-12-30] VITALS: Ht 162.6 cm; Wt 75.8 kg
[~2022-12-30] MED LIST changes: +ALBU8.5H INH; +ASPI81CH33 PO; +CHLO125TA PO; +ELIQ5TAB PO; +ERGO500029 PO; +FLUT1BLS5 INH; +GABA600T4 PO; +LEVO112T2 PO; +LIDOCAINE 1% SDV 5ML VIAL SC PRN; +LIDOCAINE 2% 100MG/5ML SDV (FOR ANES.) As Ordered ONE; +LOSA50TA28 PO; +LR 1,000 ML IV SCH; +SIMV20TA22 PO; +SPIR-10 PO; +XELP0.00 OU; +propofoL 200 MG/20 ML VIAL As Ordered ONE
[2022-12-30 15:54] VITALS: BP 136/66
== END | disposition home or self-care (01) ==
LOC: M SDC 13:22
PROVIDERS: ATTEND Internal Medicine Cardiovascular Disease
DX: I48.11 Longstanding persistent atrial fibrillation (principal); I11.9 Hypertensive heart disease without heart failure; I27.0 Primary pulmonary hypertension; I35.9 Nonrheumatic aortic valve disorder, unspecified; I44.0 Atrioventricular block, first degree; I71.21 Aneurysm of the ascending aorta, without rupture; R06.02 Shortness of breath; Z79.01 Long term (current) use of anticoagulants; E03.9 Hypothyroidism, unspecified; J45.909 Unspecified asthma, uncomplicated; Z79.51 Long term (current) use of inhaled steroids; Z79.899 Other long term (current) drug therapy

== ENCOUNTER 2023-01-06 09:31 | Emergency (ER) | payer MEDICARE, OTHER ==
[~2023-01-06] VITALS: Ht 162.6 cm; Wt 77.4 kg
[~2023-01-06 09:31] MED LIST changes: -LIDOCAINE 1% SDV 5ML VIAL SC PRN; -LIDOCAINE 2% 100MG/5ML SDV (FOR ANES.) As Ordered ONE; -LR 1,000 ML IV SCH; -propofoL 200 MG/20 ML VIAL As Ordered ONE
[2023-01-06 09:33] VITALS: TEMP 96.8
[2023-01-06 13:24] VITALS: BP 117/65; O2SAT 99
== END 2023-01-06 13:25 | disposition home or self-care (01) ==
LOC: M ED 09:31
DX: S60.221A Contusion of right hand, initial encounter (principal); Z79.52 Long term (current) use of systemic steroids; Z79.01 Long term (current) use of anticoagulants; Z79.811 Long term (current) use of aromatase inhibitors; Z79.899 Other long term (current) drug therapy

== ENCOUNTER → 2023-06-06 | Outpatient (CLI) | payer MEDICARE, OTHER ==
[2023-06-06 15:49] LABS: BASO # 0.1 10^3/uL (0.0-0.2); BASO % 1.1 % (0.0-1.0); EOS # 0.3 10^3/uL (0.0-0.5); EOS % 3.6 % (0.0-3.0); HEMATOCRIT 40.9 % (36.0-47.0); HEMOGLOBIN 12.9 g/dl (12.0-15.5); LYMPH # 1.5 10^3/uL (1.5-5.0); MEAN CORPUSCULAR HEMOGLOBIN 31.3 pg (27.0-33.0); MEAN CORPUSCULAR HGB CONC 31.5 g/dl (32.0-36.5); MEAN CORPUSCULAR VOLUME 99.3 fl (80.0-96.0); MONO # 0.8 10^3/uL (0.0-0.8); MONO % 11.4 % (2.0-8.0); NEUTROPHILS # 4.5 10^3/uL (1.5-8.5); NEUTROPHILS % 62.5 % (36.0-66.0); PLATELET COUNT, AUTOMATED 264 10^3/uL (150-450); RED BLOOD COUNT 4.12 10^6/uL (4.00-5.40); WHITE BLOOD COUNT 7.3 10^3/uL (4.0-10.0)
[2023-06-06 16:26] LABS: CPK CREATINE PHOSPHOKINASE 437 U/L (34-145)
[2023-06-06 16:27] LABS: ALBUMIN 4.2 G/DL (3.2-5.2); ALKALINE PHOSPHATASE 77 U/L (46-116); ALT/SGPT 37 U/L (7.0-40); AST/SGOT 38 U/L (<34); BILIRUBIN,DIRECT 0.2 MG/DL (<0.4); BILIRUBIN,TOTAL 0.6 MG/DL (0.3-1.2); BLOOD UREA NITROGEN 16 MG/DL (9-23); CALCIUM LEVEL 9.5 MG/DL (8.3-10.6); CARBON DIOXIDE LEVEL 28 MMOL/L (20-31); CHLORIDE LEVEL 102 MMOL/L (98-107); CHOLESTEROL LEVEL 194 MG/DL (<200); CHOLESTEROL RISK RATIO 3.51 (<5); CREATININE FOR GFR 0.84 MG/DL (0.55-1.30); GLOMERULAR FILTRATION RATE > 60.0 (>39); GLUCOSE, FASTING 85 MG/DL (74-106); HDL CHOLESTEROL 55.2 MG/DL (>40); LDL CHOLESTEROL 111.6 MG/DL (<100); NON-HDL-C 138.8 MG/DL; POTASSIUM SERUM 3.6 MMOL/L (3.5-5.1); SODIUM LEVEL 137 MMOL/L (136-145); THYROID STIMULATING HORMONE 0.727 uIU/ML (0.55-4.78); TOTAL PROTEIN 7.1 G/DL (5.7-8.2); TRIGLYCERIDES LEVEL 136 MG/DL (<150)
== END ==
LOC: M PLALAB 12:59
PROVIDERS: ATTEND Family Medicine
DX: R06.09 Other forms of dyspnea (principal); E03.8 Other specified hypothyroidism; E78.2 Mixed hyperlipidemia

== ENCOUNTER 2023-10-17 22:33 | Emergency (ER) | payer MEDICARE, OTHER ==
[~2023-10-17] VITALS: Ht 162.6 cm; Wt 72.5 kg
[2023-10-18] MEDS ORDERED: LIDOCAINE W/EPINEPHRINE 1% 20ML VIAL As Ordered ONE (07:11)
[2023-10-18 07:53] VITALS: BP 165/78; TEMP 97.4; O2SAT 98
== END 2023-10-18 07:55 | disposition home or self-care (01) ==
LOC: M ED 22:33
DX: S01.01XA Laceration without foreign body of scalp, initial encounter (principal); W01.190A Fall on same level from slipping, tripping and stumbling with subsequent striking against furniture, initial encounter; J38.7 Other diseases of larynx; M25.78 Osteophyte, vertebrae; M48.02 Spinal stenosis, cervical region; I10 Essential (primary) hypertension; E03.9 Hypothyroidism, unspecified; J45.909 Unspecified asthma, uncomplicated; Z86.79 Personal history of other diseases of the circulatory system; Y92.009 Unspecified place in unspecified non-institutional (private) residence as the place of occurrence of the external cause; Y93.89 Activity, other specified; Y99.9 Unspecified external cause status; Z79.01 Long term (current) use of anticoagulants; Z79.52 Long term (current) use of systemic steroids; Z79.82 Long term (current) use of aspirin; Z79.811 Long term (current) use of aromatase inhibitors; Z79.899 Other long term (current) drug therapy

== ENCOUNTER → 2023-12-28 | Outpatient (CLI) | payer MEDICARE, OTHER | LOC: M EKG 10:04 | PROVIDERS: ATTEND Internal Medicine Cardiovascular Disease | DX: I49.5 Sick sinus syndrome (principal); I44.1 Atrioventricular block, second degree; I48.0 Paroxysmal atrial fibrillation ==

== ENCOUNTER → 2024-01-12 | Outpatient (CLI) | payer MEDICARE, OTHER ==
[2024-01-12 10:46] LABS: BASO # 0.1 10^3/uL (0.0-0.2); BASO % 0.9 % (0.0-1.0); EOS # 0.1 10^3/uL (0.0-0.5); HEMATOCRIT 42.6 % (36.0-47.0); HEMOGLOBIN 13.9 g/dl (12.0-15.5); LYMPH # 1.4 10^3/uL (1.5-5.0); LYMPH % 22.1 % (24.0-44.0); MEAN CORPUSCULAR HEMOGLOBIN 31.9 pg (27.0-33.0); MEAN CORPUSCULAR HGB CONC 32.6 g/dl (32.0-36.5); MEAN CORPUSCULAR VOLUME 97.7 fl (80.0-96.0); MONO # 0.8 10^3/uL (0.0-0.8); MONO % 11.9 % (2.0-8.0); NEUTROPHILS # 4.1 10^3/uL (1.5-8.5); NEUTROPHILS % 62.8 % (36.0-66.0); PLATELET COUNT, AUTOMATED 251 10^3/uL (150-450); RED BLOOD COUNT 4.36 10^6/uL (4.00-5.40); WHITE BLOOD COUNT 6.5 10^3/uL (4.0-10.0)
[2024-01-12 11:21] LABS: ALBUMIN 4.1 G/DL (3.2-5.2); ALKALINE PHOSPHATASE 74 U/L (46-116); ALT/SGPT 33 U/L (7.0-40); AST/SGOT 25 U/L (<34); BILIRUBIN,TOTAL 0.5 MG/DL (0.3-1.2); BLOOD UREA NITROGEN 11 MG/DL (9-23); CALCIUM LEVEL 10.1 MG/DL (8.3-10.6); CARBON DIOXIDE LEVEL 30 MMOL/L (20-31); CHLORIDE LEVEL 106 MMOL/L (98-107); CREATININE FOR GFR 0.85 MG/DL (0.55-1.30); GLOMERULAR FILTRATION RATE > 60.0 (>39); GLUCOSE, FASTING 81 MG/DL (74-106); POTASSIUM SERUM 4.4 MMOL/L (3.5-5.1); SODIUM LEVEL 141 MMOL/L (136-145); TOTAL PROTEIN 6.8 G/DL (5.7-8.2)
[2024-01-12 11:24] LABS: THYROID STIMULATING HORMONE 0.431 uIU/ML (0.55-4.78)
== END ==
LOC: M PLALAB 08:47
PROVIDERS: ATTEND Internal Medicine Cardiovascular Disease
DX: I08.0 Rheumatic disorders of both mitral and aortic valves (principal); I11.9 Hypertensive heart disease without heart failure; R06.02 Shortness of breath; E03.9 Hypothyroidism, unspecified; R94.31 Abnormal electrocardiogram [ECG] [EKG]; I48.0 Paroxysmal atrial fibrillation; I49.5 Sick sinus syndrome

== ENCOUNTER → 2024-01-12 | Outpatient (CLI) | payer MEDICARE, OTHER | LOC: M PLAIMG 07:26 | PROVIDERS: ATTEND Internal Medicine Cardiovascular Disease | DX: I35.1 Nonrheumatic aortic (valve) insufficiency (principal) ==

== ENCOUNTER → 2024-01-12 | Outpatient (CLI) | payer MEDICARE, OTHER ==
[2024-01-12 10:46] LABS: BASO # 0.1 10^3/uL (0.0-0.2); BASO % 0.8 % (0.0-1.0); EOS # 0.1 10^3/uL (0.0-0.5); HEMOGLOBIN 14.1 g/dl (12.0-15.5); LYMPH # 1.5 10^3/uL (1.5-5.0); LYMPH % 22.1 % (24.0-44.0); MEAN CORPUSCULAR HEMOGLOBIN 31.7 pg (27.0-33.0); MEAN CORPUSCULAR VOLUME 98.9 fl (80.0-96.0); MONO # 0.9 10^3/uL (0.0-0.8); MONO % 13.1 % (2.0-8.0); NEUTROPHILS # 4.1 10^3/uL (1.5-8.5); NEUTROPHILS % 61.8 % (36.0-66.0); PLATELET COUNT, AUTOMATED 244 10^3/uL (150-450); RED BLOOD COUNT 4.45 10^6/uL (4.00-5.40); WHITE BLOOD COUNT 6.6 10^3/uL (4.0-10.0)
[2024-01-12 11:19] LABS: URIC ACID 5.1 MG/DL (3.1-7.8)
[2024-01-12 11:22] LABS: ALBUMIN 4.1 G/DL (3.2-5.2); ALKALINE PHOSPHATASE 75 U/L (46-116); ALT/SGPT 32 U/L (7.0-40); AST/SGOT 26 U/L (<34); BILIRUBIN,TOTAL 0.5 MG/DL (0.3-1.2); BLOOD UREA NITROGEN 11 MG/DL (9-23); CALCIUM LEVEL 10.2 MG/DL (8.3-10.6); CARBON DIOXIDE LEVEL 30 MMOL/L (20-31); CHLORIDE LEVEL 105 MMOL/L (98-107); CHOLESTEROL LEVEL 153 MG/DL (<200); CHOLESTEROL RISK RATIO 2.76 (<5); CPK CREATINE PHOSPHOKINASE 364 U/L (34-145); CREATININE FOR GFR 0.86 MG/DL (0.55-1.30); GLOMERULAR FILTRATION RATE > 60.0 (>39); GLUCOSE, FASTING 84 MG/DL (74-106); HDL CHOLESTEROL 55.3 MG/DL (>40); LDL CHOLESTEROL 69.5 MG/DL (<100); NON-HDL-C 97.7 MG/DL; POTASSIUM SERUM 4.5 MMOL/L (3.5-5.1); SODIUM LEVEL 141 MMOL/L (136-145); TOTAL PROTEIN 6.9 G/DL (5.7-8.2); TRIGLYCERIDES LEVEL 141 MG/DL (<150)
[2024-01-12 11:23] LABS: FREE T4 1.42 NG/DL (0.89-1.76); THYROID STIMULATING HORMONE 0.428 uIU/ML (0.55-4.78)
[2024-01-12 11:25] LABS: TOTAL 25(OH) VITAMIN D 54.8 NG/ML (20.0-100.0)
[2024-01-12 11:26] LABS: INR 1.15; PARTIAL THROMBOPLASTIN TIME 31.1 SECONDS (24.8-34.2); PROTHROMBIN TIME 14.4 SECONDS (12.5-14.5)
[2024-01-12 11:27] LABS: FREE T3 2.8 PG/ML (2.3-4.2)
[2024-01-13 15:16] LABS: VITAMIN D 1,25 DIHYDROXY 35.4 pg/mL (24.8-81.5)
== END ==
LOC: M PLALAB 08:50
PROVIDERS: ATTEND Family Medicine
DX: I10 Essential (primary) hypertension (principal); E55.9 Vitamin D deficiency, unspecified; E78.2 Mixed hyperlipidemia; I48.91 Unspecified atrial fibrillation

== ENCOUNTER → 2024-02-09 | Outpatient (CLI) | payer MEDICARE, OTHER | LOC: M WHC 08:57 | PROVIDERS: ATTEND Family Medicine | DX: Z12.31 Encounter for screening mammogram for malignant neoplasm of breast (principal); M89.9 Disorder of bone, unspecified; Z79.51 Long term (current) use of inhaled steroids ==

== ENCOUNTER → 2024-03-26 | Outpatient (CLI) | payer MEDICARE, OTHER ==
[2024-03-26 14:28] LABS: FREE T4 1.43 NG/DL (0.89-1.76)
[2024-03-26 14:29] LABS: THYROID STIMULATING HORMONE 0.85 uIU/ML (0.55-4.78)
== END ==
LOC: M PLALAB 09:32
PROVIDERS: ATTEND Family Medicine
DX: E03.8 Other specified hypothyroidism (principal)

== ENCOUNTER → 2024-05-13 | Outpatient (CLI) | payer MEDICARE, OTHER ==
[~2024-05-13] MED LIST changes: +GABA-1490 PO; -GABA600T4 PO
[2024-05-13 15:51] LABS: BLOOD UREA NITROGEN 11 MG/DL (9-23); CALCIUM LEVEL 10.5 MG/DL (8.3-10.6); CARBON DIOXIDE LEVEL 30 MMOL/L (20-31); CHLORIDE LEVEL 105 MMOL/L (98-107); CREATININE FOR GFR 0.78 MG/DL (0.55-1.30); GLOMERULAR FILTRATION RATE > 60.0 (>39); GLUCOSE, FASTING 92 MG/DL (74-106); MAGNESIUM LEVEL 2.5 MG/DL (1.8-2.4); SODIUM LEVEL 139 MMOL/L (136-145)
== END ==
LOC: M PLALAB 11:44
PROVIDERS: ATTEND Family Medicine
DX: R25.2 Cramp and spasm (principal)

== ENCOUNTER → 2024-07-02 | Outpatient (CLI) | payer MEDICARE, OTHER | LOC: M EKG 09:48 | PROVIDERS: ATTEND Internal Medicine Cardiovascular Disease | DX: I49.9 Cardiac arrhythmia, unspecified (principal); I44.30 Unspecified atrioventricular block; R00.1 Bradycardia, unspecified ==

== ENCOUNTER → 2024-10-10 | Outpatient (CLI) | payer MEDICARE, OTHER ==
[2024-10-10 13:04] LABS: BLOOD UREA NITROGEN 12 MG/DL (9-23); CALCIUM LEVEL 9.2 MG/DL (8.3-10.6); CARBON DIOXIDE LEVEL 28 MMOL/L (20-31); CHLORIDE LEVEL 109 MMOL/L (98-107); CREATININE FOR GFR 0.95 MG/DL (0.55-1.30); GLOMERULAR FILTRATION RATE > 60.0 (>32); GLUCOSE, FASTING 89 MG/DL (74-106); MAGNESIUM LEVEL 2.2 MG/DL (1.8-2.4); POTASSIUM SERUM 3.8 MMOL/L (3.5-5.1); SODIUM LEVEL 144 MMOL/L (136-145); THYROID STIMULATING HORMONE 5.586 uIU/ML (0.55-4.78)
[2024-10-10 13:07] LABS: FREE T4 1.44 NG/DL (0.89-1.76)
[2024-10-10 13:09] LABS: FREE T3 2.5 PG/ML (2.3-4.2)
== END ==
LOC: M PLALAB 07:20
PROVIDERS: ATTEND Family Medicine
DX: E83.40 Disorders of magnesium metabolism, unspecified (principal); E03.8 Other specified hypothyroidism; I10 Essential (primary) hypertension

== ENCOUNTER → 2024-11-29 | Outpatient (CLI) | payer MEDICARE, OTHER ==
[2024-11-29 13:58] LABS: FREE T4 1.46 NG/DL (0.89-1.76); THYROID STIMULATING HORMONE 2.831 uIU/ML (0.55-4.78)
[2024-11-29 14:00] LABS: FREE T3 2.6 PG/ML (2.3-4.2)
== END ==
LOC: M PLALAB 11:52
PROVIDERS: ATTEND Family Medicine
DX: E03.8 Other specified hypothyroidism (principal)

== ENCOUNTER → 2025-02-05 | Outpatient (CLI) | payer MEDICARE, OTHER ==
[2025-02-05 10:51] LABS: BASO # 0.0 10^3/uL (0.0-0.2); BASO % 0.8 % (0.0-1.0); EOS # 0.1 10^3/uL (0.0-0.5); EOS % 2.5 % (0.0-3.0); LYMPH # 1.3 10^3/uL (1.5-5.0); LYMPH % 24.5 % (24.0-44.0); MONO # 0.5 10^3/uL (0.0-0.8); MONO % 10.3 % (2.0-8.0); NEUTROPHILS # 3.2 10^3/uL (1.5-8.5); NEUTROPHILS % 61.5 % (36.0-66.0); PLATELET COUNT, AUTOMATED 186 10^3/uL (150-450)
[2025-02-05 11:05] LABS: ALT/SGPT 24.0 U/L (7.0-40); AST/SGOT 28.0 U/L (<34); CALCIUM LEVEL 9.6 MG/DL (8.3-10.6); CARBON DIOXIDE LEVEL 28.0 MMOL/L (20-31); CHLORIDE LEVEL 106.0 MMOL/L (98-107); CHOLESTEROL LEVEL 157.0 MG/DL (<200); CHOLESTEROL RISK RATIO 2.6 (<5); CREATININE FOR GFR 0.97 MG/DL (0.55-1.30); GLOMERULAR FILTRATION RATE 59.1 (>32); LDL CHOLESTEROL 78.4 MG/DL (<100); MAGNESIUM LEVEL 2.3 MG/DL (1.8-2.4); NON-HDL-C 96.8 MG/DL; POTASSIUM SERUM 4.3 MMOL/L (3.5-5.1); SODIUM LEVEL 144.0 MMOL/L (136-145); TRIGLYCERIDES LEVEL 92.0 MG/DL (<150)
[2025-02-05 11:07] LABS: FREE T4 1.32 NG/DL (0.89-1.76)
== END ==
LOC: M PLALAB 07:36
PROVIDERS: ATTEND Physician Assistant
DX: I48.0 Paroxysmal atrial fibrillation (principal); E78.00 Pure hypercholesterolemia, unspecified

== ENCOUNTER → 2025-03-04 | Outpatient (CLI) | payer MEDICARE, OTHER | LOC: M EKG 10:13 | PROVIDERS: ATTEND Physician Assistant | DX: I48.0 Paroxysmal atrial fibrillation (principal) ==

== ENCOUNTER → 2025-04-14 | Outpatient (CLI) | payer MEDICARE, OTHER ==
[2025-04-14 10:39] LABS: BASO # 0.1 10^3/uL (0.0-0.2); BASO % 1.0 % (0.0-1.0); EOS # 0.1 10^3/uL (0.0-0.5); EOS % 2.1 % (0.0-3.0); LYMPH # 1.4 10^3/uL (1.5-5.0); LYMPH % 23.7 % (24.0-44.0); MONO # 0.7 10^3/uL (0.0-0.8); MONO % 11.3 % (2.0-8.0); NEUTROPHILS # 3.6 10^3/uL (1.5-8.5); NEUTROPHILS % 61.6 % (36.0-66.0); PLATELET COUNT, AUTOMATED 231 10^3/uL (150-450)
[2025-04-14 11:07] LABS: ALT/SGPT 23.0 U/L (7.0-40); AST/SGOT 25.0 U/L (<34); CALCIUM LEVEL 9.7 MG/DL (8.3-10.6); CARBON DIOXIDE LEVEL 28.0 MMOL/L (20-31); CHLORIDE LEVEL 105.0 MMOL/L (98-107); CHOLESTEROL LEVEL 172.0 MG/DL (<200); CHOLESTEROL RISK RATIO 2.81 (<5); CREATININE FOR GFR 0.98 MG/DL (0.55-1.30); GLOMERULAR FILTRATION RATE 58.4 (>32); LDL CHOLESTEROL 86.6 MG/DL (<100); MAGNESIUM LEVEL 2.2 MG/DL (1.8-2.4); NON-HDL-C 110.8 MG/DL; POTASSIUM SERUM 4.2 MMOL/L (3.5-5.1); SODIUM LEVEL 143.0 MMOL/L (136-145); TRIGLYCERIDES LEVEL 121.0 MG/DL (<150)
[2025-04-14 11:09] LABS: FREE T4 1.3 NG/DL (0.89-1.76); TOTAL 25(OH) VITAMIN D 38.7 NG/ML (20.0-100.0)
== END ==
LOC: M PLALAB 08:51
PROVIDERS: ATTEND Family Medicine
DX: I10 Essential (primary) hypertension (principal); E55.9 Vitamin D deficiency, unspecified; I48.92 Unspecified atrial flutter; E78.2 Mixed hyperlipidemia